=== PATIENT | male | born 1950 | race African-American/Black ===

== ENCOUNTER 2022-06-06 01:12 | Emergency (ER) | payer MEDICARE, OTHER ==
[~2022-06-06] VITALS: Ht 172.7 cm; Wt 77.1 kg
[~2022-06-06 01:12] MED LIST: CYCL10TA21 MT; NAPR-1176 MT
[2022-06-06 01:45] VITALS: BP 113/56
[2022-06-06] MEDS ORDERED: MORPHINE SULFATE 10 MG/ML CPJ IM ONE (01:45)
[2022-06-06] MEDS ORDERED: T3 PO (05:17)
== END 2022-06-06 05:42 | disposition home or self-care (01) ==
LOC: ER 01:12
DX: G89.29 Other chronic pain (principal); M54.9 Dorsalgia, unspecified; J44.1 Chronic obstructive pulmonary disease with (acute) exacerbation; I11.0 Hypertensive heart disease with heart failure; I50.9 Heart failure, unspecified; Z87.81 Personal history of (healed) traumatic fracture
CPT/HCPCS: 96372; 99283; J2270

== ENCOUNTER 2022-07-31 23:04 | Emergency (ER) | payer OTHER ==
[~2022-07-31] VITALS: Ht 177.8 cm; Wt 90.0 kg
[~2022-07-31 23:04] MED LIST changes: +T3 PO
[2022-08-01] MEDS ORDERED: IPRATROPIUM BROMIDE (0.02%) 0.5MG/2.5ML NEB HHN STA (01:30)
[2022-08-01] MEDS ORDERED: MORPHINE SULFATE 4 MG/ML CPJ (NOT FOR IM USE) IV STA (01:30)
[2022-08-01] MEDS ORDERED: METHYLPREDNISOLONE SOD SUCC 125 MG/2 ML VIAL IV STA (01:30)
[2022-08-01] MEDS ORDERED: MAGNESIUM 2 G PREMIX 50 ML IV ONE (01:30)
[2022-08-01] MEDS ORDERED: ONDANSETRON HCL 4MG/2ML INJ IV STA (01:30)
[2022-08-01] MEDS: ALBUTEROL (0.083%) 2.5MG/3ML NEB HHN SCH ×3 (02:28→03:31)
[2022-08-01] MEDS ORDERED: METHYLPREDNISOLONE SOD SUCC 125 MG/2 ML VIAL IV NR (03:15)
[2022-08-01] MEDS ORDERED: MORPHINE SULFATE 4 MG/ML CPJ (NOT FOR IM USE) IV NR (03:15)
[2022-08-01] MEDS ORDERED: ONDANSETRON HCL 4MG/2ML INJ IV NR (03:15)
[2022-08-01 03:36] LABS: BASOPHILS % 0.4 % (0.0-2.0); EOSINOPHILS % 0.3 % (0.0-5.0); HEMATOCRIT. 29.2 % (42.0-52.0); HEMOGLOBIN. 9.5 g/dL (14.0-18.0); LYMPHOCYTES % 17.3 % (20.0-50.0); MEAN CORPUSCULAR HEMOGLOBIN 34.4 pg (28.0-32.0); MEAN CORPUSCULAR VOLUME 105.6 fL (80.0-94.0); MEAN PLATELET VOLUME 7.4 fl (7.4-10.4); MONOCYTES % 10.1 % (2.0-8.0); NEUTROPHILS % 71.9 % (40.0-76.0); PLATELET 130 x1000/uL (130-400); RED BLOOD CELL COUNT 2.77 mill/uL (4.7-6.1); RED CELL DISTRIBUTION WIDTH 22.1 % (11.6-14.6)
[2022-08-01 03:41] LABS: CHLORIDE 106 mEq/L (98-107)
[2022-08-01 05:21] LABS: PLATELET ESTIMATE NORMAL
[2022-08-01 07:37] VITALS: BP 125/66
== END 2022-08-01 07:38 | disposition home or self-care (01) ==
LOC: ER 23:04
DX: R51.9 Headache, unspecified (principal); J44.9 Chronic obstructive pulmonary disease, unspecified; T46.3X5A Adverse effect of coronary vasodilators, initial encounter; R79.89 Other specified abnormal findings of blood chemistry; Y92.018 Other place in single-family (private) house as the place of occurrence of the external cause; G31.9 Degenerative disease of nervous system, unspecified
CPT/HCPCS: 36415; 70450; 71045; 80053; 83880; 84484; 85025; 93005; 94640; 96365; 96375; 99285; J2270; J2405; J2930; J3475